=== PATIENT | female | born 1975 | race African-American/Black ===

== ENCOUNTER 2017-08-02 22:27 | Emergency (ER) | payer SELFPAY ==
[~2017-08-02] VITALS: Ht 175.3 cm; Wt 104.0 kg
[2017-08-03] MEDS ORDERED: IBUPROFEN 600MG TABLET PO ONE (02:00)
[2017-08-03] MEDS ORDERED: TRAMADOL 50MG TABLET PO ONE (03:00)
[2017-08-03 05:05] VITALS: BP 138/85
== END 2017-08-03 05:23 | disposition home or self-care (01) ==
LOC: ER 22:27
DX: K08.89 Other specified disorders of teeth and supporting structures (principal)
CPT/HCPCS: 81025; 99283